=== PATIENT | male | born 1980 | race Caucasian/White ===

== ENCOUNTER 2016-12-05 02:59 | Emergency (ER) | payer SELFPAY ==
[2016-12-05 03:07] VITALS: BP 105/82
[2016-12-05 03:50] LABS: Hematocrit 42 % (42-52); Mean Corpuscular HGB Conc 33 g/dl (31-36); Mean Corpuscular Hemoglobin 30 pg (27-31); Mean Corpuscular Volume 91 fL (80-94); Mean Platelet Volume 8 um3 (7.4-10.4); Red Blood Count 4.67 10^6/ul (4.0-5.4); Red Cell Distribution Width 13 % (10.5-15); White Blood Count 19.8 10^3/ul (3.5-10.8)
[2016-12-05 03:55] LABS: Add Diff/Slide Review? Slide Review Added; Comments Flag Yes
[2016-12-05 04:01] LABS: ALT 23 U/L (7-52); AST 33 U/L (13-39); Albumin 4.6 g/dL (3.2-5.2); Alkaline Phosphatase 66 U/L (34-104); Anion Gap 12 mmol/L (2-11); BUN/Creatinine Ratio 13.2 (8-20); Blood Urea Nitrogen 28 mg/dL (6-24); CO2 Carbon Dioxide 22 mmol/L (22-32); Chloride 99 mmol/L (101-111); EGFR African American 46.2 (>60); EGFR Non-African American 35.9 (>60); Globulin 2.9 g/dL (2-4); Glucose 97 mg/dL (70-100); Potassium 4.6 mmol/L (3.5-5.0); Sodium 133 mmol/L (133-145); Total Protein 7.5 g/dL (6.4-8.9)
[2016-12-05 04:34] LABS: Urine Bilirubin Negative (Negative); Urine Glucose Negative (Negative); Urine Nitrite Negative (Negative)
[2016-12-05 04:39] LABS: Acetaminophen < 15 mcg/mL; Alcohol < 10 mg/dL (<10); Salicylate < 2.50 mg/dL (<30)
[2016-12-05 04:43] LABS: Benzodiazepine Urine Screen None Detected (None Detect)
[2016-12-05] MEDS ORDERED: Ibuprofen TAB* 600 MG PO ONE (06:31)
[2016-12-05] MEDS ORDERED: Divalproex ER TAB(*) 500 MG PO ONE (06:32)
--- NOTE | 2016-12-06 12:40 | ED ---
IAureliano Billy, scribed for Zach An MD on 12/05/16 at 1025 . Progress - Progress Note Progress Note: Patient signed out by Dr. Gar at shift change pending MHE. The patient denies SI/HI and has no withdrawal symptoms. He states that he was here in the ED "just for a break." The patient was evaluated by Dr. Sierra who supports the plan for discharge. Course/Dx - Diagnoses Provider Diagnoses: Substance induced mood disorder Discharge - Discharge Plan Condition: Stable Disposition: HOME Referrals: Aidan Moore JR PA [Primary Care Provider] - The documentation as recorded by the Aureliano smith Billy accurately reflects the service I personally performed and the decisions made by , Zach An MD.
== END 2016-12-05 10:50 | disposition home or self-care (01) ==
LOC: ED 02:59
DX: F39 Unspecified mood [affective] disorder (principal)
CPT/HCPCS: 36415; 80053; 80307; 80320; 80329; 81003; 84443; 85025; 99285; A9270-GY; G0480

== ENCOUNTER 2016-12-18 09:28 | Emergency (ER) | payer SELFPAY ==
[2016-12-18 09:35] VITALS: BP 124/76
[2016-12-18] MEDS ORDERED: oxyCODONE/Acetamin 5/325 MG* TAB PO ONE (10:25)
[2016-12-18] MEDS ORDERED: HYDROcodone/ACETAMIN 5-325 MG* 1 TAB PO ONE (10:28)
--- NOTE | 2016-12-18 12:04 | RAD ---
INDICATION: Right posterior thigh swelling possible infection. COMPARISON: There are no prior studies available for comparison. TECHNIQUE: Multiple real-time images of the soft tissues of the right posterior thigh were obtained. FINDINGS: There is soft tissue swelling present and edema tracking within the subcutaneous tissues although no discrete focal fluid collection is seen. IMPRESSION: SWELLING AND FLUID TRACKING WITHIN THE SOFT TISSUES, NO DISCRETE ABSCESS IS SEEN.
[2016-12-18] MEDS ORDERED: cefTRIAXone VIAL(*) 1,000 MG VIAL IM ONE (12:13)
[2016-12-18] MEDS ORDERED: Lidocaine 1% INJ* 10 MG/ML 30 ML SDV INJ ONE (12:21)
[2016-12-18] MEDS ORDERED: Lidocaine 1% MPF* 2 ML VIAL ONE (12:25)
[2016-12-18] MEDS ORDERED: Lidocaine 1% MPF* 2 ML VIAL INJ ONE (12:30)
--- NOTE | 2016-12-18 13:02 | UC ---
Skin Complaint HPI - HPI Summary HPI Summary: Patient presents to the with CC of redness and swelling to the posterior upper thigh after sitting on a nail 5 days ago. Worsening pain today. UTD with tetanus. He notes a 10/10 pain with no fluctuance to the area. Denies fever, aches, chills or sweats. Denies other issues at this time. Takes no medications. Allergy to cefaclor. - History of Current Complaint Chief Complaint: UCSkin Time Seen by Provider: 12/18/16 10:18 Stated Complaint: LEG COMPLAINT Hx Obtained From: Patient Onset/Duration: Gradual Onset Skin Exposure Onset/Duration: Hours Ago Timing: Constant Onset Severity: Moderate Current Severity: Moderate Pain Intensity: 4 Pain Scale Used: 0-10 Numeric Location: Discrete - right posterior thigh Character: Redness, Raised, Painful Aggravating: Nothing, Touch Associated Signs & Symptoms: Positive: Negative Related History: Trauma - Allergy/Home Medications Allergies/Adverse Reactions: Allergies Allergy/AdvReac Type Severity Reaction Status Date / Time Cefaclor [From [facility]] Allergy Intermediate bleeding Verified 12/18/16 09:35 bowels Codeine Allergy Mild Nausea Verified 12/18/16 09:35 Sulfa Drugs Allergy Mild Hives Verified 12/18/16 09:35 Home Medications: Home Medications Divalproex Sodium [Depakote ER] 500 mg PO 12/18/16 [History] Review of Systems Constitutional: Negative Skin: Other - small 2X2 slightly raised erythematous non-fluctuant area with surrounding erythema and 10X10 area of induration Respiratory: Negative Cardiovascular: Negative Motor: Negative Neurovascular: Negative Musculoskeletal: Negative Neurological: Negative All Other Systems Reviewed And Are Negative: Yes PMH/Surg Hx/FS Hx/Imm Hx Previously Healthy: Yes Other History Of: Negative For: Anticoagulant Therapy - Surgical History Surgical History: None - Family History Known Family History: Positive: Unknown - Social History Occupation: Employed Full-time Lives: With Family Alcohol Use: Occasionally Substance Use Type: None, Other Substance Use Comment - Amount & Last Used: Meth, per pt report Smoking Status (MU): Heavy Every Day Tobacco Smoker Amount Used/How Often: 1 ppd Household Exposure Type: Cigarettes Physical Exam Triage Information Reviewed: Yes Appearance: Well-Appearing, No Pain Distress, Well-Nourished Vital Signs: Initial Vital Signs Temp 97.8 F 12/18/16 09:31 Pulse 90 12/18/16 09:31 Resp 20 12/18/16 09:31 BP 124/76 12/18/16 09:31 Pulse Ox 98 12/18/16 09:31 Vital Signs Reviewed: Yes Eye Exam: Normal Eyes: Positive: Conjunctiva Clear Dental Exam: Normal Neck exam: Normal Neck: Positive: Supple, Nontender, No Lymphadenopathy Respiratory Exam: Normal Respiratory: Positive: Chest non-tender Cardiovascular Exam: Normal Cardiovascular: Positive: RRR Musculoskeletal Exam: Normal Musculoskeletal: Positive: Strength Intact Neurological Exam: Normal Neurological: Positive: Alert Psychological: Positive: Normal Response To Family, Age Appropriate Behavior Skin: Positive: Other - small 2X2 slightly raised erythematous non-fluctuant area with surrounding erythema and 10X10 area of induration Course/Dx - Course Course Of Treatment: Patient presents 5 days after sitting on a nail. Small 2X2 slightly raised erythematous non-fluctuant area in the center with surrounding erythema and 10X10 area of induration. No area for I and D. Denies fever, aches, chills or sweats. US shows fluid collection with no abscess. Ceftriazone 1g IM given in UC. Doxycycline 100mg BID x 10 days rx. rx for 1 day pain medicine. Note for work. - Differential Diagnoses - Skin Complaint Differential Diagnoses: Other - abscess, cellulitis, erisepylus - Diagnoses Provider Diagnoses: Skin Abscess Discharge - Discharge Plan Condition: Stable Disposition: HOME Prescriptions: DOXYcycline CAP(*) [DOXYcycline 100MG CAP(*)] 100 mg PO BID #14 cap HYDROcodone/ACETAMIN 5-325 MG* [[place] 5-325 TAB*] 1 tab PO Q4H PRN #6 tab MDD 6 PRN Reason: Pain Patient Education Materials: Abscess (ED) Forms: *Work Release Referrals: Aidan Moore JR, PA [Primary Care Provider] - Additional Instructions: Warm compresses to the area Ibuprofen 600mg three times daily Doxycycline twice daily as prescribed to you If you develop worsening signs of infection such as red streaking, worsening pain, drainage or swelling - return to UC. Take the pain medication as prescribed to you Images Front/Back of Body, Lg (Nolan): 1 - indurated erythematous area measuring 10X10
== END 2016-12-18 12:38 | disposition home or self-care (01) ==
LOC: UCEAST 09:28
DX: L02.91 Cutaneous abscess, unspecified (principal); F17.210 Nicotine dependence, cigarettes, uncomplicated; Z88.5 Allergy status to narcotic agent; Z88.2 Allergy status to sulfonamides
CPT/HCPCS: 96372; 99212; A9270-GY; G0463; J0696; J2001

== ENCOUNTER 2017-01-23 12:48 | Emergency (ER) | payer SELFPAY ==
[2017-01-23 12:55] VITALS: BP 120/60
[2017-01-23] MEDS ORDERED: Acetaminophen TAB* 325 MG PO ONE (14:09)
--- NOTE | 2017-01-23 14:14 | UC ---
UC Dental HPI - HPI Summary HPI Summary: This is a 36 yo gentleman with epilepsy who presented with complaints of dental pain and excessive fatigue. He reports he has been sleeping excessively for the last week or so. He's had reduced appetite, possible fevers, no chills. He reports diarrhea x 2-3 days. No urinary symptoms. No abd pain. He has had contact with someone with mono. No ST. No rash. He has a chronic cough, perhaps worse than usual. No recent changes in his antiepileptic medications. <Franco Tobar - Last Filed: 01/23/17 14:49> <Justa Johnson - Last Filed: 01/23/17 16:15> - History of Current Complaint Chief Complaint: UCDentalProblem Stated Complaint: DENTAL PAIN - Allergies/Home Medications Allergies/Adverse Reactions: Allergies Allergy/AdvReac Type Severity Reaction Status Date / Time [facility] Allergy Intermediate bleeding Verified 12/18/16 09:35 bowels Codeine Allergy Mild Nausea Verified 12/18/16 09:35 Sulfa Drugs Allergy Mild Hives Verified 12/18/16 09:35 PMH/Surg Hx/FS Hx/Imm Hx Neurological History: Seizures Other History Of: Negative For: Anticoagulant Therapy - Surgical History Surgical History: None - Family History Known Family History: Positive: Unknown - Social History Alcohol Use: Occasionally Substance Use Type: None, Other Substance Use Comment - Amount & Last Used: Meth, per pt report Smoking Status (MU): Heavy Every Day Tobacco Smoker Amount Used/How Often: 1 ppd Household Exposure Type: Cigarettes <Franco Tobar - Last Filed: 01/23/17 14:49> Review of Systems Constitutional: Fever, Fatigue Skin: Negative Eyes: Negative ENT: Negative Respiratory: Cough Cardiovascular: Negative Gastrointestinal: Diarrhea Genitourinary: Negative Motor: Negative Neurovascular: Negative Musculoskeletal: Negative Neurological: Negative Psychological: Negative All Other Systems Reviewed And Are Negative: Yes <Franco Tobar - Last Filed: 01/23/17 14:49> Physical Exam Triage Information Reviewed: Yes Appearance: Ill-Appearing - mildly Vital Signs: Initial Vital Signs Temp 98.6 F 01/23/17 12:52 Pulse 97 01/23/17 12:52 Resp 18 01/23/17 12:52 BP 120/60 01/23/17 12:52 Pulse Ox 99 07/19/17 12:52 Vital Signs Reviewed: Yes ENT: Positive: Other: - very poor dentition, areas of gingival edema and erythema cooresponding with pain Respiratory: Positive: Rhonchi, Wheezing. Negative: Crackles Cardiovascular: Positive: RRR, No Murmur Abdomen Description: Positive: Nontender, Soft Bowel Sounds: Positive: Present Neurological Exam: Normal Skin Exam: Normal <Franco Tobar - Last Filed: 01/23/17 14:49> Vital Signs: Initial Vital Signs Temp 98.6 F 01/23/17 12:52 Pulse 97 01/23/17 12:52 Resp 18 01/23/17 12:52 BP 120/60 01/23/17 12:52 Pulse Ox 99 01/23/17 12:52 <Justa Johnson - Last Filed: 01/23/17 16:15> Diagnostics - Laboratory Diagnostic Studies Completed/Ordered: CXR - NAD, some hyperexpansion <Franco Tobar - Last Filed: 01/23/17 14:49> Dental Complaint Course/Dx - Course Course Of Treatment: This is a 36 yo male with epilepsy who presented with c/o dental pain and fatigue. He had difffuse wheezing on lung exam. No infiltrate on CXR. Treat for dental abscess and acute bronchitis with Augmentin, prednisone and albuterol - Differential Dx/Diagnosis Differential Diagnosis/Dx: Dental Abscess, Pharyngitis, Other - bronchitis Provider Diagnoses: 1. Dental abscess. 2. Acute bronchitis <Franco Tobar - Last Filed: 01/23/17 14:49> Discharge <Franco Tobar - Last Filed: 01/23/17 14:49> <Justa Johnson - Last Filed: 01/23/17 16:15> - Discharge Plan Condition: Stable Disposition: HOME Prescriptions: Albuterol HFA INHALER* [Ventolin HFA Inhaler*] 1 - 2 puff INH Q4H PRN #1 mdi PRN Reason: cough, SOB Amoxicillin/Clavulanate TAB* [Augmentin TAB 875*] 875 mg PO BID #20 tab Methylprednisolone [Medrol Dosepak 4 MG*] 4 mg PO .SEE HUGH INSTRUCTION #1 hugh Patient Education Materials: Dental Abscess (ED) Forms: *Work Release Referrals: Aidan Moore JR, PA [Primary Care Provider] - Additional Instructions: Activity: As tolerated Instructions: 1. Please take medications as directed 2. Follow up with your primary care provider if symptoms do not improve over the next week Attestation Statement User Type: Provider - I was available for consult. This patient was seen by the TG. The patient was not presented to, seen by, or examined by me. -[place] <Justa Johnson - Last Filed: 01/23/17 16:15>
--- NOTE | 2017-01-23 14:32 | RAD ---
INDICATION: Cough. Fatigue. COMPARISON: None TECHNIQUE: PA and lateral dual-energy views were obtained. FINDINGS: Bones/Soft Tissues: There are no acute bony findings. Cardiomediastinal: The cardiomediastinal silhouette is normal. Lungs: There are no infiltrates. Pleura: There are no pleural effusions. Other: None IMPRESSION: NORMAL CHEST.
== END 2017-01-23 14:50 | disposition home or self-care (01) ==
LOC: UCEAST 12:48
DX: K04.7 Periapical abscess without sinus (principal); J20.9 Acute bronchitis, unspecified; G40.909 Epilepsy, unspecified, not intractable, without status epilepticus; Z72.0 Tobacco use
CPT/HCPCS: 71020; 99212; A9270-GY; G0463

== ENCOUNTER 2017-03-04 12:22 | Emergency (ER) | payer MEDICAID, OTHER ==
[2017-03-04 12:29] VITALS: BP 119/77
--- NOTE | 2017-03-04 12:54 | ED ---
Back Pain - HPI Summary HPI Summary: Patient presents to the ED with CC of low back pain which is chronic. He notes to several slipped discs and has pain at 10/10 daily which has been improved in the past with opioid use. He is currently going to [facility] upon discharge from here. They were unable to accept the patient until he is "cleared" by a clinic for his back pain. He has been taking opioids for several years off and on with stints of taking suboxone when trying to get clean. Last dose this morning. Last prescription for an unknown reason x 4 days ago (4 day supply). He is requesting pain medication to help with the withdraws and is experiencing shakiness. He denies N/V, REED, abdominal pain. Patient is a smoker. Lives with a partner. Hx non-contributory. Takes no medications other than his intermittently prescribed opioids. He denies any difference in his back pain and denies bladder or bowel dysfunction. - History of Current Complaint Chief Complaint: EDBackInjuryPain Stated Complaint: BACK PAIN Time Seen by Provider: 03/04/17 12:25 Hx Obtained From: Patient Onset/Duration: Gradual Onset Onset/Duration: Still Present Timing: Constant Back Pain Location: Is Discrete @ - low back Severity Initially: Severe Severity Currently: Severe Pain Intensity: 10 Pain Scale Used: 0-10 Numeric Character: Spasmodic, Stiffness Aggravating Symptom(s): Movement Alleviating Symptom(s): Nothing Associated Signs And Symptoms: Positive: Negative - Risk Factors AAA Risk Factors: Negative TAD Risk Factors: Negative Cauda Equina Risk Factors: Negative Epidural Abscess Risk Factors: Negative - Allergies/Home Medications Allergies/Adverse Reactions: Allergies Allergy/AdvReac Type Severity Reaction Status Date / Time Cefaclor [From Ceclor] Allergy Intermediate bleeding Verified 12/18/16 09:35 bowels Codeine Allergy Mild Nausea Verified 12/18/16 09:35 Sulfa Drugs Allergy Mild Hives Verified 12/18/16 09:35 PMH/Surg Hx/FS Hx/Imm Hx Previously Healthy: Yes Endocrine/Hematology History: Denies: Hx Anticoagulant Therapy Respiratory History: Reports: Hx Asthma Psychiatric History: Reports: Hx Substance Abuse - marijuana Denies: Hx Eating Disorder - Immunization History Hx Pertussis Vaccination: No Immunizations Up to Date: Unable to Obtain/Confirm Infectious Disease History: No Infectious Disease History: Denies: Hx Clostridium Difficile, Hx Hepatitis, Hx Human Immunodeficiency Virus (HIV), Hx of Known/Suspected MRSA, Hx Shingles, Hx Tuberculosis, Hx Known/ Suspected VRE, Hx Known/Suspected VRSA, History Other Infectious Disease, Traveled Outside the [place] in Last 30 Days - Family History Known Family History: Positive: Unknown - Social History Occupation: Employed Part-time Lives: With Family Alcohol Use: Occasionally Hx Substance Use: Yes Substance Use Type: Reports: Prescribed, Other Substance Use Comment - Amount & Last Used: Meth, per pt report; opioid abuse Hx Tobacco Use: Yes Smoking Status (MU): Heavy Every Day Tobacco Smoker Do You Chew or Dip Tobacco: No Amount Used/How Often: 1 ppd Have You Chewed or Dipped Tobacco in the LAST YEAR: No Review of Systems Constitutional: Negative Eyes: Negative Cardiovascular: Negative Respiratory: Negative Positive: no symptoms reported, see HPI Positive: Arthralgia - severe back pain 04/16 Neurological: Negative Positive: Anxious All Other Systems Reviewed And Are Negative: Yes Physical Exam Triage Information Reviewed: Yes Vital Signs On Initial Exam: Initial Vitals Temp Pulse Resp BP Pulse Ox 98.4 F 65 20 119/77 93 03/04/17 12:24 03/04/17 12:24 03/04/17 12:24 03/04/17 12:24 03/04/17 12:24 Vital Signs Reviewed: Yes Appearance: Positive: Ill-Appearing, Pain Distress, Thin, Cachectic Head/Face: Positive: Normal Head/Face Inspection Eyes: Positive: EOMI, ALEXANDRU Neck: Positive: Supple, Nontender, No Lymphadenopathy Respiratory/Lung Sounds: Positive: Clear to Auscultation, Breath Sounds Present Cardiovascular: Positive: Normal, Pulses are Symmetrical in both Upper and Lower Extremities Musculoskeletal: Positive: Pain @ - L2-L5 on palpation Neurological: Positive: Speech Normal Psychiatric: Positive: Normal - P[place]in Coma Scale Best Eye Response: 4 - Spontaneous Coma Scale Total: 15 Diagnostics - Vital Signs Vital Signs Temp Pulse Resp BP Pulse Ox 03/04/17 12:25 81 95 03/04/17 12:24 98.4 F 65 20 119/77 93 - Laboratory Lab Statement: Any lab studies that have been ordered have been reviewed, and results considered in the medical decision making process. Back Pain Course/Dx - Course Course Of Treatment: He denies any difference in his back pain and denies bladder or bowel dysfunction. Thorough physical exam was performed, focusing on thoracic and lumbar special tests and ROM. Due to patient pain around injury, physical exam was limited. Limited ROM. Flip Test positive. Straight leg raise positive. Hip flexion and extension, knee extension, dorsiflexion, great toe extension and plantar flexion intact. Rotating at hips limited d/t pain. Nerve roots L4-S2 reflexes intact. L1-S2 nerve root sensory intact. No saddle anesthesia. Gait abnormal. Patient is currently heading to [facility] upon discharge. He is requesting pain medication for opiod withdraw. Provider is not comfortable giving pain medication to addict, and he is encouraged to go from ED to the rehab center to which he agrees. He is given infromation on opioid withdraw. - Diagnoses Differential Diagnosis/HQI/PQRI: Positive: Compressive Cord Syndrome, Herniated Disc, Strain, Sprain Provider Diagnoses: Opioid withdrawal, Chronic back pain Discharge - Discharge Plan Condition: Stable Disposition: HOME Patient Education Materials: Opioid Withdrawal (ED) Referrals: Aidan Moore JR, PA [Physician Outside Laborer] - Alex Wiley MD [Medical Doctor] - Additional Instructions: Go straight from here to rehab
== END 2017-03-04 12:52 | disposition home or self-care (01) ==
LOC: ED 12:22
DX: F11.23 Opioid dependence with withdrawal (principal); M54.5 Low back pain; F17.210 Nicotine dependence, cigarettes, uncomplicated; F41.9 Anxiety disorder, unspecified
CPT/HCPCS: 99282